=== PATIENT | female | born 1980 | race Caucasian/White ===

== ENCOUNTER 2022-05-13 20:43 | Emergency (ER) | payer SELFPAY ==
[~2022-05-13] VITALS: Ht 170.2 cm; Wt 100.0 kg
[2022-05-13 20:51] VITALS: BP 129/75
[2022-05-13 21:52] LABS: BASOPHILS % 0.3 % (0.0-2.0); CHLORIDE 102 mEq/L (98-107); HEMOGLOBIN. 13.1 g/dL (12.0-16.0); LYMPHOCYTES % 30.1 % (20.0-50.0); MEAN CORPUSCULAR HEMOGLOBIN 27.9 pg (28.0-32.0); MEAN CORPUSCULAR VOLUME 87.2 fL (81.0-99.0); MEAN PLATELET VOLUME 8.5 fl (7.4-10.4); MONOCYTES % 5.9 % (2.0-8.0); NEUTROPHILS % 62.7 % (40.0-76.0); PLATELET 253 x1000/uL (130-400); RED CELL DISTRIBUTION WIDTH 13.9 % (11.6-14.6)
[2022-05-13 22:01] LABS: ETHANOL BLOOD < 10 mg/dL
== END 2022-05-14 02:30 | disposition home or self-care (01) ==
LOC: ER 20:43
DX: F12.980 Cannabis use, unspecified with anxiety disorder (principal); F10.129 Alcohol abuse with intoxication, unspecified; Y90.0 Blood alcohol level of less than 20 mg/100 ml; R63.2 Polyphagia
CPT/HCPCS: 36415; 80053; 80320; 82962; 85025; 93005; G0480

== ENCOUNTER 2025-07-25 14:37 | Emergency (ER) | payer OTHER ==
[~2025-07-25] VITALS: Ht 172.7 cm; Wt 114.0 kg
[2025-07-25 14:43] VITALS: O2SAT 100
[2025-07-25 15:07] LABS: BASOPHILS % 0.7 % (0.0-2.0); EOSINOPHILS % 1.8 % (0.0-5.0); HEMATOCRIT. 39.6 % (36.0-48.0); HEMOGLOBIN. 13.0 g/dL (12.0-16.0); LYMPHOCYTES % 43.9 % (20.0-50.0); MEAN PLATELET VOLUME 8.4 fl (7.4-10.4); MONOCYTES % 6.7 % (2.0-8.0); NEUTROPHILS % 46.9 % (40.0-76.0); PLATELET 379 x1000/uL (130-400); RED BLOOD CELL COUNT 4.64 mill/uL (4.2-5.4); RED CELL DISTRIBUTION WIDTH 13.4 % (11.6-14.6)
[2025-07-25] MEDS: LIDOCAINE HCL 1% 20ML VIAL INFIL SCH (15:20)
[2025-07-25] MEDS: MORPHINE SULFATE 4 MG/ML INJ (FOR IV/IM USE) IV SCH (15:28)
[2025-07-25] MEDS: SODIUM CHLORIDE 0.9% 1,000 ML IV ONE (15:28)
[2025-07-25] MEDS: ONDANSETRON HCL 4MG/2ML INJ IV ONE (15:29)
[2025-07-25 15:42] LABS: CREATININE 0.9 mg/dL (0.6-1.0); UREA NITROGEN BLOOD 11 mg/dL (9-23)
[2025-07-25] MEDS: LIDOCAINE HCL/EPINEPHRINE 1%-EPI 1:100,000 20ML VIAL INFIL ONE (16:16)
[2025-07-25] MEDS: LIDOCAINE HCL 1% 20ML VIAL INFIL ONE (16:16)
[2025-07-25] MEDS: TETANUS, DIPHTHERIA, PERTUSSIS VAC/PF 0.5ML (>10YR OLD) IM ONE (16:32)
[2025-07-25] MEDS: CEFAZOLIN 1000MG PREMIX 50 ML IV ONE (17:02)
[2025-07-25] MEDS ORDERED: CEPH500C2 MT (17:52)
[2025-07-25 18:30] VITALS: BP 116/58; PULSE 69; RESP 9; TEMP 36.2; O2SAT 98
== END 2025-07-25 18:41 | disposition home or self-care (01) ==
LOC: ER 14:37
DX: S61.412A Laceration without foreign body of left hand, initial encounter (principal); F12.90 Cannabis use, unspecified, uncomplicated; I10 Essential (primary) hypertension; Z79.899 Other long term (current) drug therapy; X58.XXXA Exposure to other specified factors, initial encounter; Y93.89 Activity, other specified; Y92.89 Other specified places as the place of occurrence of the external cause; Y99.8 Other external cause status
CPT/HCPCS: 99291; 96365; 96375; 96361; 80048; 85025; 86850; 86900; 86901; 36415; 73120; 90715; 12002; 90471; J0690; J2004; J2003; J2405; J2270